=== PATIENT | female | born 1980 | race Caucasian/White ===

== ENCOUNTER 2018-05-30 16:16 | Emergency (ER) | payer OTHER ==
[~2018-05-30] VITALS: Ht 162.6 cm; Wt 197.3 kg
[2018-05-30 16:38] VITALS: BP 165/88
[2018-05-30 18:10] VITALS: BP 145/78
== END 2018-05-30 18:10 | disposition home or self-care (01) ==
LOC: MED 16:16
DX: L03.316 Cellulitis of umbilicus (principal); E03.9 Hypothyroidism, unspecified; J45.909 Unspecified asthma, uncomplicated; E11.9 Type 2 diabetes mellitus without complications; I10 Essential (primary) hypertension; F41.9 Anxiety disorder, unspecified
CPT/HCPCS: 81002; 81025; 82948; 99283

== ENCOUNTER 2018-11-17 09:07 | Emergency (ER) | payer OTHER ==
[~2018-11-17] VITALS: Ht 157.5 cm; Wt 186.0 kg
[2018-11-17 09:15] VITALS: BP 138/71
--- NOTE | 2018-11-17 09:15 | NUR ---
PATIENT AMBULATED TO BED 7.
--- NOTE | 2018-11-17 09:20 | NUR ---
PT PRESENTS TO ED WITH C/O SORE THROAT & BILATERAL EAR PAIN X 4 DAYS. +FEVER; AFEBRILE AT THIS TIME. +NAUSEA, DENIES VOMITING EPISODES AND DIARRHEA. PT STATES THE PAIN WHEN SWALLOWING IS 7/10 AT THIS TIME. +COUGH THAT STARTED APPROX 2 DAYS AGO; YELLOW PHLEGM REPORTED. DENIES SOB, O2 SAT 96% ON RA. RR EVEN AND UNLABORED. ERMD TO EVALUATE PT.
[2018-11-17] MEDS ORDERED: KETOROLAC 60 MG/2 ML VIAL IM ONE (10:10)
[2018-11-17] MEDS ORDERED: PENICILLIN G BENZATHINE L-A 1.2 MU/2 ML SYR IM ONE (10:10)
[2018-11-17 10:44] VITALS: BP 139/87
--- NOTE | 2018-11-17 10:44 | NUR ---
Patient discharged with v/s stable. Written and verbal after care instructions given and explained. Patient alert, oriented and verbalized understanding of instructions. Ambulatory with steady gait. All questions addressed prior to discharge. ID band removed. Patient advised to follow up with PMD. Rx of NORCO, MOTRIN, DIFLUCAN, PREDNISONE, AND ZOFRAN given. Patient educated on indication of medication including possible reaction and side effects. Opportunity to ask questions provided and answered.
== END 2018-11-17 10:44 | disposition home or self-care (01) ==
LOC: MED 09:07
DX: J02.0 Streptococcal pharyngitis (principal); R11.0 Nausea; J45.909 Unspecified asthma, uncomplicated; E11.9 Type 2 diabetes mellitus without complications; I10 Essential (primary) hypertension
CPT/HCPCS: 81002; 81025; 96372; 99283; J0561; J1885